=== PATIENT | male | born 1945 | race Caucasian/White ===

== ENCOUNTER 2024-03-06 13:29 | Day surgery (SDC) | payer OTHER ==
[2024-03-04 14:28] VITALS: BMI 22.2
[2024-03-06] MEDS: IV FLUID CONTINUATION 1,000 ML IV ONE (14:08)
[2024-03-06] MEDS: LACTATED RINGERS 1,000 ML IV SCH (14:13)
[2024-03-06 14:14] VITALS: RESP 16; TEMP 97.8
[2024-03-06] MEDS ORDERED: PROPOFOL 10 MG/ML 20 ML VIAL IV ONE (15:38)
--- NOTE | 2024-03-06 15:58 | P.PCN ---
Date of Procedure: 03/06/24 Procedure(s) Performed: BRIEF HISTORY: Patient is a 78-year-old pleasant white male scheduled for an elective colonoscopy as a part of evaluation for history of colon polyps. His last colonoscopy was 3 years ago in [place]. PROCEDURE PERFORMED: Colonoscopy. PREOPERATIVE DIAGNOSIS: History of colon polyp. IV sedation per Anesthesia. PROCEDURE: After informed consent was obtained, the patient, was brought into the endoscopy unit. IV sedation was administered by Anesthesia under continuous monitoring. Digital rectal examination was normal. Initially the Olympus CF-160 flexible video colonoscope was then inserted in the rectum, gradually advanced into the cecum without any difficulty. Careful examination was performed as the scope was gradually being withdrawn. Ileocecal valve and the appendiceal orifice were visualized and appeared normal. Prep was excellent. Mucosa of the cecum, appeared normal. In the ascending colon there was a 3 mm polyp that was removed by cold biopsy. Rest of the ascending colon, transverse colon, appeared normal. The descending colon there was another 4 mm polyp removed by cold biopsy. Moderate left-sided diverticulosis seen. Descending colon, sigmoid colon, and rectum appeared normal. Retroflexion was performed in the rectum and no lesions were seen. The patient tolerated the procedure well. IMPRESSION: 3 mm ascending colon polyp status post cold biopsy 4 mm descending colon polyp status post cold biopsy Scattered sigmoid diverticulosis. RECOMMENDATIONS: Findings of this examination were discussed with the patient as well as his family. He was advised to follow-up with the biopsy results. If the biopsy reveals adenoma he can have repeat colonoscopy 5 years..
[2024-03-06 16:45] VITALS: BP 113/73; PULSE 70
== END 2024-03-06 16:46 | disposition home or self-care (01) ==
LOC: ORWHC2ENDO 13:29
PROVIDERS: ATTEND Internal Medicine Gastroenterology
DX: Z12.11 Encounter for screening for malignant neoplasm of colon (principal); K63.5 Polyp of colon; K57.30 Diverticulosis of large intestine without perforation or abscess without bleeding; E78.5 Hyperlipidemia, unspecified; I48.91 Unspecified atrial fibrillation; J44.9 Chronic obstructive pulmonary disease, unspecified; Z85.828 Personal history of other malignant neoplasm of skin; Z86.010 Personal history of colon polyps; Z79.01 Long term (current) use of anticoagulants; Z79.51 Long term (current) use of inhaled steroids; Z79.899 Other long term (current) drug therapy
CPT/HCPCS: 88305; 45380; J2704